=== PATIENT | male | born 1990 | race Caucasian/White ===

== ENCOUNTER 2024-12-24 15:34 | Inpatient (IN) | payer MEDICAID, SELFPAY ==
[2024-12-24 15:39] VITALS: BP 130/74; PULSE 101; TEMP 36.5; O2SAT 100
--- NOTE | 2024-12-24 16:18 | PC.PHAR ---
Pts current medications verified with pharmacy. Last fill dates and day supply entered in pharmacy notes.
--- NOTE | 2024-12-24 16:31 | ECG_ITS ---
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 Measurements Intervals [place] Rate: 95 P: 80 SC: 136 QRS: 92 QRSD: 90 T: 75 QT: 333 QTc: 419 Interpretive Statements SINUS RHYTHM BORDERLINE RIGHT AXIS DEVIATION [QRS AXIS > 90] No previous ECG available for comparison Electronically Signed On 12-26-2024 23:29:53 CDT by Antwon Han M.D. [email or web address]
[2024-12-24] MEDS: sodium chloride 0.9% 1,000 ML 999 ML IV (16:34)
[2024-12-24 16:50] LABS: Basophils % 0.3 %; Hematocrit 42.5 % (37-53); Lymphocytes % 7.7 %; Mean Corpuscular HGB Conc 34.4 g/dL (30-55); Mean Corpuscular Hemoglobin 30.4 pg (27-33); Mean Corpuscular Volume 88.5 fl (82-101); Mean Platelet Volume 8.8 fL (7.4-10.4); Monocytes # 1.5 10^3/uL (0.2-0.9); Neutrophils # 9.97 10^3/uL (1.8-7.7); Neutrophils % 79.7 %; Nucleated Red Blood Cells % 0 %; Platelet Count 314 10^3/cmm (157-399); Red Cell Distribution Width 12.2 % (12.1-15.1); White Blood Count 12.51 10^3/uL (3.29-11.43)
--- NOTE | 2024-12-24 16:54 | ED.C_ITS ---
HPI - Psych 2 General: Chief Complaint: Psychiatric Symptoms Stated Complaint: autism in custody symptoms of break acrdng to mom Time Seen by Provider: 12/24/24 15:54 History of Present Illness: 34-year-old male brought in by mom. Morelia bell reports he is having symptoms of psychosis or not acting right. She reports that he has autism. That a couple years ago he was placed on a medication that caused him to start having some psychosis episodes. He is no longer on that medicine still occasionally gets psychosis episodes. Patient ran away 2 days ago and they were unable to find him until today. Patient only states that nothing is wrong and will not provide any other information to upon arrival to the ER. Related Data Home Medications ?Medication ?Instructions ?Recorded ?Confirmed rizatriptan 10 mg tablet See Rx Instructions PO .COMP LACIE 05/13/24 12/24/24 KELSEY 250 mg-5HTP 50 mg-mag 50 500 cap PO DAILY 12/24/24 [id number]-kjddie 1,360 mcg DFE-B12 capsule cholecalciferol (vitamin D3) 250 500 mcg PO DAILY 05/2312/24/24 mcg (10,000 unit) tablet famotidine 40 mg tablet 40 mg PO DAILY 06/18/2401/13 naltrexone 4.5 mg capsule 5 mg PO DAILY 06/18/2412/24 fremanezumab-vfrm 225 mg/1.5 mL 225 mg SUBCUT .every 3 0 days 09/11/24 12/24/24 subcutaneous auto-injector (Ajovy) ursodiol 300 mg capsule 900 mg PO DAILY 12/24/2401/13 Previous Rx's ?Medication ?Instructions ?Recorded diazepam 5 mg tablet 5 mg PO BID PRN anxiety #60 tabs 09/11/24 trazodone 50 mg tablet 50 mg PO .qhs PRN sleep #30 tabs 12/17/24 Allergies Allergy/AdvReac Type Severity Reaction Status Date / Time topiramate (From Topamax) Allergy Severe ADR-Anxiety Verified 12/24/24 15:48 cucumber Allergy Intermediate ALGY-Anaphy Verified 12/24/24 15:48 laxis thyme Allergy Intermediate ALGY-Anaphy Verified 12/24/24 15:48 laxis egg Allergy Unknown Verified 12/24/24 21:57 gluten Allergy Unknown Verified 12/24/24 21:57 NSAIDS (Non-Steroidal Allergy algy-unk Verified 12/24/24 15:48 Anti-Inflamma penicillin G Allergy ALGY-Anaphy Verified 12/24/24 15:48 laxis Sulfa (Sulfonamide Allergy ALGY-Difficulty Verified 12/24/24 15:48 Antibiotics) Breathing Review of Systems 2 General: Reports: ROS unobtainable due to mental status PFSH ED 2 PFSH: Medical History Asperger syndrome Psychiatric care Social History Smoking and tobacco/nicotine status: never used tobacco/nicotine Physical Exam 2 Const: COMMON NORMALS: no acute distress and alert Resp: COMMON NORMALS: normal respiratory effort and clear to auscultation bilaterally AUSCULTATION: clear to auscultation bilaterally Cardio: COMMON NORMALS: regular rate and regular rhythm RATE: regular rate RHYTHM: regular rhythm GI: COMMON NORMALS: Soft to palpation and non-tender PALPATION: Yes Soft to palpation Neuro: COMMON NORMALS: moves all extremities and no focal motor deficits S ENSORIUM/ORIENTATION: Yes alert Psych: COMMON NORMALS: mental status grossly normal, cooperative and normal affect Skin: COMMON NORMALS: no wounds Course 2 Vital Signs: Vital signs: Vital Signs Temperature 97.7 F 12/24/24 15:39 Pulse Rate 95 12/24/24 17:48 Blood Pressure 130/74 12/24/24 15:39 Pulse Oximetry 98 12/24/24 17:48 Oxygen Delivery Me thod Room Air 12/24/24 17:48 MDM - Psych Medical Decision Making Patient was medically cleared for admission. Patient will be admitted to [facility] with Dr. Duque excepting for further medical management evaluation of his psychosis. Patient was stable upon transfer to the floor. Lab Data 12/24/24 16:31 12/24/24 16:31 Laboratory Results WBC 12.51 10^3/uL (3.29-11.43) H 12/24/24 16:31 RBC 4.80 10^6/uL (3.85-5.65) 12/24/24 16:31 Hgb 14.60 g/dL (11.27-16.99) 12/24/24 16:31 Hct 42.5 % (37-53) 12/24/24 16: MCV 88.5 fl (82-101) 12/24/24 16: MCH 30.4 pg (27-33) 12/24/24 16: MCHC 34.4 g/dL (30-55) 12/24/24 16: RDW 12.2 % (12.1-15.1) 12/24/24 16: Plt Count 314 10^3/cmm (157-399) 12/24/24 16: MPV 8.8 fL (7.4-10.4) 12/24/24 16: Neut % (Auto) 79.7 % 12/24/24 16: Lymph % (Auto) 7.7 % 12/24/24 16: Meeker % (Auto) 12.0 % 12/24/24 16: Eos % (Auto) 0.0 % 12/24/24 16: Baso % (Auto) 0.3 % 12/24/24 16: Neut # (Auto) 9.97 10^3/uL (1.8-7.7) H 12/24/24 16: Lymph # (Auto) 1.0 10^3/uL (0.8-4.8) 12/24/24 16: Meeker # (Auto) 1.5 10^3/uL (0.2-0.9) H 12/24/24 16: Eos # (Auto) 0.0 10^3/uL (0.0-0.8) 12/24/24 16: Baso # (Auto) 0.0 10^3/uL (0.0-0.1) 12/24/24 16: Nucleated RBC % (auto) 0 % 12/24/24 16: Nucleated RBCs # 0.0 /100WBC 12/24/24 16: Sodium 137 mmol/L (136-145) 12/24/24 16: Potassium 4.3 mmol/L (3.5-5.1) 12/24/24 16: Chloride 96 mmol/L (98-107) L 12/24/24 16: Carbon Dioxide 19 mmol/L (22-29) L 12/24/24 16:31 Anion Gap 26.3 (5-19) H 12/24/24 16:31 BUN 22 mg/dL (6-20) H 12/24/24 16:31 Creatinine 0.8 mg/dL (0.7-1.2) 12/24/24 16:31 GFR Calculation 112.0 mL/min (90-130) 12/24/24 16:31 Glucose 77 mg/dL (65-115) 12/24/24 16:31 Calculated Osmolality 286 mOsm/kg (285-295) 12/24/24 16:31 Calcium 10.0 mg/dL (8.5-10.5) 12/24/24 16:31 Total Bilirubin 3.3 mg/dL (0.15-1.2) H 12/24/24 16:31 AST 65 U/L (0-40) H 12/24/24 16:31 ALT 30 U/L (0-41) 12/24/24 16:31 Alkaline Phosphatase 94 U/L (40-130) 12/24/24 16:31 Troponin T Baseline 8 ng/L (0-15) 12/24/24 16:31 Total Protein 6.5 g/dL (6.6-8.7) L 12/24/24 16:31 Albumin 4.7 g/dL (3.5-5.2) 12/24/24 16:31 Globulin 1.8 g/dL (1.3-4.6) 12/24/24 16:31 TSH 0.99 uIU/mL (0.27-4.20) 12/24/24 16:31 Salicylates < 0.3 mg/dL (3-10) L 12/24/24 16:31 Acetaminophen < 5.0 ug/mL (10-30) L 12/24/24 16:31 Ethyl Alcohol < 10 mg/dL (0-10) 12/24/24 16:31 No radiology studies performed this visit Discharge Plan Discharge Patient Disposition: Admitted As Inpatient Clinical Impression: Acute psychosis Condition: Stable Coding Level of Care Code ED Vp Revenue Cycle for Bethany Richard
[2024-12-24 17:02] LABS: Troponin(5th) Baseline 8 ng/L (0-15)
[2024-12-24 17:18] LABS: Alanine Aminotransferase 30 U/L (0-41); Albumin Level 4.7 g/dL (3.5-5.2); Alkaline Phosphatase 94 U/L (40-130); Aspartate Amino Transferase 65 U/L (0-40); Blood Urea Nitrogen 22 mg/dL (6-20); Carbon Dioxide 19 mmol/L (22-29); Chloride 96 mmol/L (98-107); Creatinine Clr Calc Pharmacy 117.9075; Globulin 1.8 g/dL (1.3-4.6); Glucose 77 mg/dL (65-115); Osmolality Calculated 286 mOsm/kg (285-295); Sodium 137 mmol/L (136-145); Thyroid Stimulating Hormone 0.99 uIU/mL (0.27-4.20); Total Bilirubin 3.3 mg/dL (0.15-1.2); Total Protein 6.5 g/dL (6.6-8.7)
[2024-12-24 17:22] LABS: Acetaminophen < 5.0 ug/mL (10-30); Alcohol Level < 10 mg/dL (0-10); Anion Gap 26.3 (5-19); Potassium 4.3 mmol/L (3.5-5.1); Salicylate < 0.3 mg/dL (3-10)
[2024-12-24 17:48] VITALS: PULSE 95; O2SAT 98
--- NOTE | 2024-12-24 18:12 | ECG_ITS ---
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 Measurements Intervals [place] Rate: 96 P: 84 AR: 154 QRS: 91 QRSD: 88 T: 73 QT: 345 QTc: 436 Interpretive Statements SINUS RHYTHM BORDERLINE RIGHT AXIS DEVIATION [QRS AXIS > 90] POSSIBLE RIGHT VENTRICULAR CONDUCTION DELAY [RSR (QR) IN V1/V2] Compared to ECG 12/24/2024 16:31:13 No significant changes Electronically Signed On 12-26-2024 23:42:44 CDT by Antwon Han M.D. [id number]
[2024-12-24] MEDS: LORazepam 1 MG/0.5 ML injection 2 MG IM (21:47)
[2024-12-24] MEDS: diphenhydrAMINE 50 mg/mL SDV 1mL IM (21:47)
[2024-12-24 21:59] VITALS: BP 124/63; PULSE 95; RESP 15; O2SAT 98
[2024-12-24 22:15] VITALS: BP 124/64; PULSE 100; RESP 16; TEMP 36.7; O2SAT 100
[2024-12-24 22:25] VITALS: BP 124/63; PULSE 95; O2SAT 98
--- NOTE | 2024-12-24 22:37 | PC.ADMIT ---
[email or web address] Admission Note: The patient,Rony Grullon,34 y/o, was given written information regarding hospital policies, unit procedures and contact persons. Patient's smoking status: never smoked. Vital Signs - 8 hr 12/24/24 15:39 12/24/24 17:48 12/24/24 21:59 Temperature 97.7 F Pulse Rate 101 H 95 95 Respiratory Rate 15 Blood Pressure 130/74 124/63 Pulse Oximetry 100 98 98 Oxygen Delivery Method Room Air Room Air Room Air 12/24/24 22:25 Temperature Pulse Rate 95 Respiratory Rate Blood Pressure 124/63 Pulse Oximetry 98 Oxygen Delivery Method Pt. was brought in by Filemon Rudd. Pt. is a 34 y/o male with Autism. Mother is guardian. Pt. apparently ran away 2 days ago and was found today. Pt. was difficult in ER, has refused a urine test. During nursing assessment pt. refused many of the questions. Pt. 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 Pt. was getting tired and closing his eyes during assessment.
[2024-12-25 06:00] VITALS: RESP 16
[2024-12-25] MEDS: famotidine 20 mg Tablet 40 MG PO (08:34)
[2024-12-25 14:00] VITALS: BP 85/50; PULSE 93; RESP 16; TEMP 37.1; O2SAT 100
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
[2024-12-25] MEDS: paliperidone palmitate 234 mg Syringe IM (16:37)
[2024-12-25] MEDS: diazePAM 5 mg Tablet PO (18:15)
[2024-12-25 20:09] VITALS: BP 112/64; PULSE 119; RESP 16; TEMP 37.1; O2SAT 97
[2024-12-26 06:00] VITALS: BP 112/71; PULSE 75; RESP 16; TEMP 36.6; O2SAT 99
[2024-12-26] MEDS: famotidine 20 mg Tablet 40 MG PO (10:42)
[2024-12-26] MEDS: diazePAM 5 mg Tablet PO ×2 (10:42→18:37)
[2024-12-26 14:00] VITALS: BP 119/76; PULSE 83; TEMP 36.7; O2SAT 92
[2024-12-26] MEDS: paliperidone ER 3 mg Tablet PO (14:45)
--- NOTE | 2024-12-26 15:15 | P.NPUPN_ITS ---
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 Patient had remained extremely guarded on the milieu. He had appeared to become increasingly agitated when asked about why he had come into the hospital. He had repeatedly stated that he did not wish to talk about events leading to him being here. The patient did not report any side effects from his medications. He appeared disinterested and was withdrawn and isolative throughout the day. He had refused to visit his mother and his aunt when they came on visit both yesterday and today. Mental Status Exam 2 MSE Comments: The patient had minimal eye contact and appeared in some moderate distress with some evidence of psychomotor agitation. His gait appeared within normal limits. His hygiene was fair today. There was no evidence of any abnormal involuntary motor movements, tics, or tremors appreciated. He had reported his mood is okay. His affect was mood incongruent and somewhat intense and irritable. His thought process was linear but superficial. His thought content revealed no suicidal or homicidal ideation. He did not appear to be responding to internal stimuli. He was extremely guarded and hostile as he appeared to perseverate about needing to leave the hospital. His attention span was poor. His insight was poor. His judgment was poor. His impulse control appeared limited. Vitals/I&O/Wt Last Vital Signs Temp 98.0 F 12/26/24 14:00 Pulse 83 12/26/24 14:00 Resp 16 12/26/24 06:00 BP 119/76 12/26/24 14:00 Pulse Ox 92 12/26/24 14:00 O2 Del Method Room Air 12/26/24 14:00 Weight last 48 hrs Weight 58.06 kg Data NPU 12/24/24 16:31 12/24/24 16:31 A&P Assessment and plan (1) Acute psychosis: (2) Schizophrenia: Plan 34-year-old male who presents with psychosis with a reported history of autism previously on antipsychotics having run away from the home 2 days prior with patient refusing to answer further questions. #1.? Engage patient in individual milieu and group therapy. #2?? Recommend sober living treatment at the highest level of care to which the patient is willing to commit #3??? Invega sustenna 234mg given today after discussion with mother who reported good response on invega oral in the past. Will initiate invega 3mg daily with patient to receive IM haldol if refusing the invega. #4?? TO-15 minute checks? PDMP PDMP Reviewed: Not Reviewed Involuntary Hold Information 2 Hold Status: Legal Status: Active Guardianship Attestations NPU 2 Medical Necessity Statement*: Inpatient hospitalization is medically necessary and deemed to be the clinically appropriate intervention at this time. Medications will be adjusted and initiated as indicated.? The patient?s likely length of stay is 4-6 days. ? Coding Level of Care Code Acute Code for [facility] Fwd Diagnoses Acute psychosis F23 Paranoid schizophrenia F20.0 Schizophrenia type: paranoid schizophrenia
[2024-12-26 22:00] VITALS: BP 99/63; PULSE 97; RESP 18; TEMP 36.4; O2SAT 99
[2024-12-27 06:00] VITALS: BP 108/70; PULSE 84; RESP 18; TEMP 36.4; O2SAT 96
[2024-12-27 14:00] VITALS: BP 104/68; PULSE 86; RESP 16; TEMP 36.6; O2SAT 98
[2024-12-27] MEDS: URSODIOL 300 MG 900 EACH PO (14:40)
[2024-12-27] MEDS: paliperidone ER 3 mg Tablet PO (14:40)
[2024-12-27] MEDS: diazePAM 5 mg Tablet PO (14:40)
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
[2024-12-27 19:23] VITALS: BP 108/71; PULSE 98; RESP 17; TEMP 36.4; O2SAT 100
[2024-12-28 06:00] VITALS: BP 105/73; PULSE 73; RESP 16; TEMP 36.4; O2SAT 100
[2024-12-28] MEDS: diazePAM 5 mg Tablet PO (07:50)
[2024-12-28] MEDS: famotidine 20 mg Tablet 40 MG PO (07:50)
[2024-12-28] MEDS: paliperidone ER 6 mg Tablet PO (07:50)
[2024-12-28 08:12] VITALS: BP 105/73; PULSE 73; RESP 16; TEMP 36.4; O2SAT 100
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
== END 2024-12-28 08:17 | disposition home or self-care (01) | DRG 885 ==
LOC: ER 21:24 → NP 22:08
PROVIDERS: Admitting Provider Psychiatry & Neurology Psychiatry; Emergency Provider Student in an Organized Health Care Education/Training Program; Visit Provider Psychiatry & Neurology Psychiatry
DX: F20.9 Schizophrenia, unspecified (principal); F84.5 Asperger's syndrome; Z88.8 Allergy status to other drugs, medicaments and biological substances; Z88.2 Allergy status to sulfonamides; Z88.6 Allergy status to analgesic agent; Z91.018 Allergy to other foods; J45.909 Unspecified asthma, uncomplicated; I10 Essential (primary) hypertension; Z91.012 Allergy to eggs; J30.2 Other seasonal allergic rhinitis
CPT/HCPCS: 80053; 80307; 84443; 84484; 85025; 93005; 96372; 97150; 97165; 99285; J1200; J2060; J7030; J9999